=== PATIENT | male | born 1980 | race African-American/Black ===

== ENCOUNTER 2019-10-12 15:43 | Inpatient (IN) | payer OTHER ==
[2019-10-12] VITALS (16 sets, daily range): BP systolic 119–150; BP diastolic 68–91
[~2019-10-12] VITALS: Ht 185.4 cm; Wt 142.0 kg
[2019-10-12 16:17] LABS: ABSOLUTE NEUTROPHILS 7.6 thou/uL (1.4-8.2); BASOPHILS 1.3 % (0.0-2.0); EOSINOPHILS 0.2 % (0.0-3.0); HEMATOCRIT 47.5 % (42.0-52.0); HEMOGLOBIN 15.6 gm/dL (14.0-18.0); LYMPHOCYTES 24.3 % (24.0-44.0); MCH 26.6 pg (26.0-34.0); MCHC 32.8 g/dL (28.0-37.0); MONOCYTES 8.4 % (1.0-8.0); PLATELET COUNT 371 thou/uL (150-400); POLYS 65.8 % (36.0-66.0); RBC 5.86 mil/uL (4.50-6.00); RDW 14.3 % (10.5-14.5); URINE BLOOD 1+ (Negative); URINE CLARITY CLEAR; URINE COLOR YELLOW; URINE GLUCOSE-RANDOM* 3+ (Negative); URINE KETONES 3+ (Negative); URINE LEUKOCYTES-REFLEX NEGATIVE (Negative); URINE NITRITE-REFLEX NEGATIVE (Negative); URINE PROTEIN (DIPSTICK) 1+ (Negative); URINE SPECIFIC GRAVITY >= 1.030 (1.005-1.035); URINE UROBILINOGEN 0.2 E.U./dl (0.2-1.0); WBC 11.6 thou/uL (4.0-11.0)
[2019-10-12 16:21] LABS: BE(vivo) -15.3 mmol/L (-2 to +3); HCO3 10.1 mmol/L (22.0-26.0); PCO2 VENOUS 24.7 mmHg (41.0-51.0); PO2 VENOUS 51.3 mmHg (35.0-45.0)
[2019-10-12 16:21] LABS: ICTOTEST (BILI CONFIRMATORY) Negative (Negative); URINE BILIRUBIN NEGATIVE (Negative)
[2019-10-12 16:50] LABS: CALCIUM 10.2 mg/dL (8.5-10.1); CREATININE 1.6 mg/dL (0.7-1.3); POTASSIUM 5.2 mmol/L (3.5-5.1)
[2019-10-12 16:56] LABS: ALBUMIN 4.8 g/dL (3.4-5.0); TOTAL BILIRUBIN 0.6 mg/dL (<0.1-1.0); TOTAL PROTEIN 8.9 g/dL (6.4-8.2)
[2019-10-12 17:10] LABS: FINE GRANULAR CASTS 4-10 Moderate /LPF (None Seen); HYALINE CASTS 0-3 Few /LPF (None Seen)
[2019-10-12 17:11] LABS: BACTERIA-REFLEX 1-9 Few /HPF (None Seen); CRYSTALS None Seen /LPF (None Seen); SQUAMOUS None Seen /LPF (0-3); URINE RBC 0-2 Rare /HPF (0-2); URINE WBC-REFLEX 0-5 Rare /HPF (0-5)
--- NOTE | 2019-10-12 18:22 | NUR ---
CALLED,INFORMED THERE WERE NO ORDERS FOR THIS PT.--VW
--- NOTE | 2019-10-12 18:30 | NUR ---
PT ADMITTED TO ICU S.P DKA. DR. WORTHY CALLED FOR ORDERS. NEW IV PLACED R FORARM. NS GOING IN WIDE OPEN. FAMILY HERE AND INSTRUCTED ON ICU PROCEDURES. ADMISSION HISTORY AND PHYSICAL DONE.
[2019-10-12 18:59] LABS: MAGNESIUM 1.7 mg/dL (1.8-2.4); PHOSPHORUS 3.4 mg/dL (2.5-4.9)
[2019-10-12 19:42] LABS: ALBUMIN 4.1 g/dL (3.4-5.0); CREATININE 1.4 mg/dL (0.7-1.3); MAGNESIUM 2.4 mg/dL (1.8-2.4); PHOSPHORUS 3.4 mg/dL (2.5-4.9); POTASSIUM 4.9 mmol/L (3.5-5.1); TOTAL BILIRUBIN 0.6 mg/dL (<0.1-1.0); TOTAL PROTEIN 7.8 g/dL (6.4-8.2)
[2019-10-13] VITALS (18 sets, daily range): BP systolic 116–156; BP diastolic 64–101
[2019-10-13 01:29] LABS: CALCIUM 8.3 mg/dL (8.5-10.1); CREATININE 1.3 mg/dL (0.7-1.3); POTASSIUM 4.1 mmol/L (3.5-5.1)
[2019-10-13 01:41] LABS: ALBUMIN 3.8 g/dL (3.4-5.0); PHOSPHORUS 2.2 mg/dL (2.5-4.9)
--- NOTE | 2019-10-13 04:58 | NUR ---
AOX4. DENIES PAIN. VSS. AFEBRILE. DKA PROTOCOL INGOING. INSULING GTT TITRATED PER BS. NO COMPLAINS PRESENTLY. WILL CONTINUE TO MONITOR.
[2019-10-13 04:59] LABS: BASOPHILS 0.8 % (0.0-2.0); EOSINOPHILS 2.3 % (0.0-3.0); HEMATOCRIT 40.7 % (42.0-52.0); MCH 26.3 pg (26.0-34.0); MCV 79.5 fL (80.0-100.0); MONOCYTES 9.9 % (1.0-8.0); PLATELET COUNT 313 thou/uL (150-400); RBC 5.13 mil/uL (4.50-6.00); RDW 14.8 % (10.5-14.5); WBC 7.8 thou/uL (4.0-11.0)
[2019-10-13 05:13] LABS: HEMOGLOBIN 13.5 gm/dL (14.0-18.0)
[2019-10-13 05:27] LABS: ALBUMIN 3.8 g/dL (3.4-5.0); CALCIUM 8.4 mg/dL (8.5-10.1); CREATININE 1.3 mg/dL (0.7-1.3); POTASSIUM 4.4 mmol/L (3.5-5.1); TOTAL BILIRUBIN 0.5 mg/dL (<0.1-1.0); TOTAL PROTEIN 6.8 g/dL (6.4-8.2)
[2019-10-13 05:34] LABS: CHOLESTEROL 227 mg/dL (<200); HDL CHOLESTEROL 31 mg/dL (>40); LDL CHOLESTEROL 163 mg/dL (<100); TC:HDL 7.3 Ratio (Not establshd); TRIGLYCERIDE 165 mg/dL (<150); VLDL 33 mg/dL (<40)
[2019-10-13 05:39] LABS: SERUM ASSESSMENT Clear
[2019-10-13 08:19] LABS: ALBUMIN 3.6 g/dL (3.4-5.0); CALCIUM 8.8 mg/dL (8.5-10.1); CREATININE 1.2 mg/dL (0.7-1.3); PHOSPHORUS 1.9 mg/dL (2.5-4.9); POTASSIUM 3.8 mmol/L (3.5-5.1)
--- NOTE | 2019-10-13 10:01 | EKG ---
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 : 1980 Requested By: Naz Walter Order Number: [id number] MD: Delgado Kearney Measurements Intervals [place] Rate: 103 P: 95 ND: 158 QRS: 35 QRSD: 90 T: -29 QT: 320 QTc: 419 Interpretive Statements Sinus tachycardia Abnormal T, consider ischemia, inferior leads Borderline ST elevation, lateral leads No previous ECG available for comparison Electronically Signed On 10-13-2019 10:01:16 PRINCIPAL NETWORK ARCHITECT by Delgado Kearney [email or web address] <ELECTRONICALLY SIGNED> By: Delgado Kearney MD, [facility] 10/13/19 1001 1609 160 Delgado Kearney MD, FACC /EPI
[2019-10-13 12:30] LABS: CALCIUM 8.7 mg/dL (8.5-10.1); CREATININE 1.3 mg/dL (0.7-1.3); MAGNESIUM 2.2 mg/dL (1.8-2.4); POTASSIUM 4.1 mmol/L (3.5-5.1)
[2019-10-13 17:34] LABS: CALCIUM 9.2 mg/dL (8.5-10.1); CREATININE 1.2 mg/dL (0.7-1.3); MAGNESIUM 2.2 mg/dL (1.8-2.4)
--- NOTE | 2019-10-13 18:21 | NUR ---
PT A/OX4, EDUCATED PT/FAMILY ON DIABETES, PT SEEMS RECEPITIVE TO INFORMATION AND WAS GOOGLING NEW HEALTHY LOW SUGAR OPITIONS. VITAL SIGNS STABLE. ZAYNAB ORDERED PT CC DIET- SPOKE WITH ZAYNAB REGARDING LAB UPDATES AND HE WOULD LIKE PT TO REMAIN ON INSULIN GTT UNTIL 10/14. NO COMPLAINTS OF PAIN.
[2019-10-13 21:48] LABS: CALCIUM 8.7 mg/dL (8.5-10.1); CREATININE 1.2 mg/dL (0.7-1.3); POTASSIUM 3.7 mmol/L (3.5-5.1)
[2019-10-14] VITALS (17 sets, daily range): BP systolic 126–151; BP diastolic 68–88
[2019-10-14 02:06] LABS: CALCIUM 8.3 mg/dL (8.5-10.1); CREATININE 1.1 mg/dL (0.7-1.3); POTASSIUM 3.5 mmol/L (3.5-5.1)
[2019-10-14 05:36] LABS: GLYCOHEMOGLOBIN (HGB A1C) 12.2 % (4.8-5.6)
[2019-10-14 05:54] LABS: ABSOLUTE NEUTROPHILS 2.8 thou/uL (1.4-8.2); BASOPHILS 0.9 % (0.0-2.0); HEMOGLOBIN 12.7 gm/dL (14.0-18.0); LYMPHOCYTES 42.3 % (24.0-44.0); MCH 26.4 pg (26.0-34.0); MCHC 33.5 g/dL (28.0-37.0); MCV 78.9 fL (80.0-100.0); MONOCYTES 8.4 % (1.0-8.0); PLATELET COUNT 276 thou/uL (150-400); POLYS 45.4 % (36.0-66.0); RBC 4.81 mil/uL (4.50-6.00); RDW 14.2 % (10.5-14.5); WBC 6.1 thou/uL (4.0-11.0)
[2019-10-14 06:13] LABS: ALBUMIN 3.2 g/dL (3.4-5.0); CALCIUM 8.6 mg/dL (8.5-10.1); POTASSIUM 3.3 mmol/L (3.5-5.1); TOTAL BILIRUBIN 0.4 mg/dL (<0.1-1.0); TOTAL PROTEIN 6.1 g/dL (6.4-8.2)
--- NOTE | 2019-10-14 06:18 | NUR ---
PT ALERT AND ORIENTED. PT RESTED WELL THROUGHOUT THE NIGHT. PT ANION GAP CLOSED. PT ON 2 UNITS OF CONTINUOUS REGULAR INSULIN.DKA RESOLVED. CHART CHECK. PT PROGRESSING TOWARDS GOALS.
--- NOTE | 2019-10-14 12:44 | NUR ---
INITIAL DIABETIC EDUCATION COMPLETED BY CHARGE NURSE. PATIENT EDUCATED ON HYPOGLYCEMIA AND HYPERGLYCEMIA.
[2019-10-14 13:33] LABS: POTASSIUM 4.2 mmol/L (3.5-5.1)
--- NOTE | 2019-10-14 18:46 | NUR ---
PATIENT ALERT AND ORIENTED X4, NO COMPLAINTS OF PAIN. ON ROOM AIR, UP INDEPENDENTLY IN ROOM, PATIENT STABLE ON FEET. ON INSULIN GTT DURING BEGINNING OF SHIFT, INSULIN DISCONTINUED AT 1420 AND LONG ACTING INSULIN GIVEN. BLOOD SUGAR CLOSELY MONITORED. PATIENT EDUCATED ON INSULIN ADMINISTRATION AND THE IMPORTANCE OF ALTERNATING FINGERS. NO SIGNS OF ACUTE DISTRESS NOTED AT THIS TIME. WILL CONTINUE TO MONITOR.
[2019-10-14 18:55] LABS: CALCIUM 8.7 mg/dL (8.5-10.1); CREATININE 1.1 mg/dL (0.7-1.3); MAGNESIUM 1.7 mg/dL (1.8-2.4); POTASSIUM 4.3 mmol/L (3.5-5.1)
--- NOTE | 2019-10-14 20:00 | NUR ---
ASSUMED CARE OF PT. PT IS A MED SURG OVERFLOW. AWAITING A BED ASSIGNMENT. AWAKE AND ALERT VERY PLEASANT. MAINT IV. REMAINS IN A SINUS TACH BELLAMY 102 AFEBRILE. LUNGS CLEAR. WILL CONT TO MONITOR.
--- NOTE | 2019-10-14 21:00 | NUR ---
BLOOD SUGAR 361. LANTUS AND LISPRO INSULIN GIVEN ORDERED.
--- NOTE | 2019-10-15 01:01 | NUR ---
pt tx via w/c to room 449 with NURSE. AWAKE AND ALERT DENIES CONCERNS
[2019-10-15 01:30] VITALS: BP 148/93
--- NOTE | 2019-10-15 03:36 | NUR ---
progress pt transferred to room 449 from icu report given by Denise CORTEZ from icu. Pt admitted with newly diagnosed diabetes and dka. Diabetic education was initiated in icu and pt has drawn up and injected insulin x2. Pt states he feels really ready to manage his diabetes and plans on educating himself regarding diabetes and self care. Hopes to be discharged home today. continue to monitor.
[2019-10-15 06:24] LABS: CALCIUM 8.7 mg/dL (8.5-10.1); CREATININE 0.8 mg/dL (0.7-1.3); HEMATOCRIT 39.5 % (42.0-52.0); HEMOGLOBIN 13.1 gm/dL (14.0-18.0); MAGNESIUM 1.8 mg/dL (1.8-2.4); MCH 26.5 pg (26.0-34.0); MCHC 33.1 g/dL (28.0-37.0); POTASSIUM 4.1 mmol/L (3.5-5.1); RBC 4.94 mil/uL (4.50-6.00); RDW 14.7 % (10.5-14.5); WBC 4.7 thou/uL (4.0-11.0)
[2019-10-15 07:37] VITALS: BP 144/94
[2019-10-15] MEDS ORDERED: LIPITOR 20 MG T20 M1 PO (09:02)
[2019-10-15] MEDS ORDERED: GLUCOPHAGE XR750 MG PO (09:02)
[2019-10-15] MEDS ORDERED: LANTUS SUBQ (09:03)
[2019-10-15] MEDS ORDERED: TRADJENTA5 MG PO (09:03)
[2019-10-15 10:08] VITALS: BP 144/94
--- NOTE | 2019-10-15 11:29 | NUR ---
pt assessments as documented. seen by Dr. Rawls this am. Changes to medications. Perscriptions written for new oral diabetic meds, as well as lantus and home accucheck machine. pt aware of all new medications and the need for follow up appointment. IV's discontinued. Pt discharged with no further questions.
--- NOTE | 2019-10-15 17:12 | HC ---
[facility] [place] [address] CONSULTATION Name: NALDO CORONA Room #: 449-I [facility] IN M.R.#: [id number] Admission: 10/12/19 Attend Phys: Calvin Reynolds MD Discharge: 10/15/19 Date of : 76 Report #: [id number] THIS REPORT FOR: //name// CC: ERICK physician/PCP Calvin Reynolds DATE OF SERVICE: 10/15/2019 CONSULTING PHYSICIAN: Dr. Reynolds. REASON FOR CONSULTATION: DKA, type 2 diabetes mellitus. HISTORY OF PRESENT ILLNESS: This is a 39-year-old male patient whose medical background is rather unremarkable. The patient presented on 10/12/2019 with progressive generalized weakness, polyuria, polydipsia, weight loss for a few weeks preceding admission. The patient has never been diagnosed with diabetes in the past, but on arrival the patient was found to have DKA. Subsequently, the patient was admitted to the ICU and was managed with IV fluids and intravenous insulin and was stabilized shortly into his hospital stay. Currently, the patient is being managed with subcutaneous insulin therapy. The patient does not have a medical background that is known for hyperlipidemia, hypertension or cardiovascular disease. He notes that his family history is rather remarkable for type 2 diabetes on his mother's side. REVIEW OF SYSTEMS: CONSTITUTIONAL: Fatigue, tiredness, weight loss. No fever. HEENT: No sore throat, ear pain, sinus pain. PULMONARY: No shortness of breath, cough or hemoptysis. CARDIAC: Palpitations, but no syncope, presyncope, chest pain or leg edema. GASTROINTESTINAL: Nausea, vomiting, constipation, all resolved by now. NEUROLOGY: Negative for lightheadedness, loss of consciousness, seizure activity. Occasional peripheral numbness is acknowledged. PSYCHIATRIC: No depression, anxiety, major sleep disturbances or other abnormalities. SKIN: Negative for rash, ulceration, discoloration or other major abnormalities. Otherwise, review of systems noncontributory other than those mentioned in HPI. PAST MEDICAL HISTORY: DKA, type 2 diabetes mellitus as noted in HPI. PAST SURGICAL HISTORY: None. OUTPATIENT MEDICATIONS: None. ALLERGIES: None. [address] [address] CONSULTATION Name: NALDO CORONA Room #: 449-I [facility] IN [facility].#: [id number] Admission: 10/12/19 Attend Phys: Calvin Reynolds MD Discharge: 10/15/19 Date of : 76 Report #: [id number] FAMILY HISTORY: Type 2 diabetes mellitus. SOCIAL HISTORY: He works for the [employer]. He is , has four children. Denies use of tobacco or illicit drugs. PHYSICAL EXAMINATION: GENERAL: Pleasant -Slovenian female patient who is not in apparent pain or distress. VITAL SIGNS: Blood pressure is 144/94 mmHg, heart rate is 78 beats per minute, respiration 18 per minute, temperature 36.5 degrees. CONSTITUTIONAL: The patient appears comfortable, not in apparent distress. HEENT: Anicteric sclerae. Intact extraocular motions. NECK: Supple, without JVD, carotid bruits or lymphadenopathy. I do not appreciate thyromegaly. CHEST: Clear to auscultation with good air entry bilaterally. No wheezes or crackles. HEART: Regular rate and rhythm without murmurs or gallops. ABDOMEN: Soft and lax without tenderness or organomegaly. H has active bowel sounds. EXTREMITIES: Lower extremity exam is noted for trace ankle edema. No skin breaks or ulcerations. Pedal pulses are appreciated. NEUROLOGIC: Awake, alert and oriented to time, place and person. The remainder of his examination is nonfocal. PSYCHIATRIC: Normal mood and affect, interactive, answers my questions appropriately. LABORATORY DATA: Blood glucose on arrival was over 450 and has gradually been controlled, under 200 mg/dL. Over the past 24 hours, the patient's blood glucose values have arisen well above 250 mg/dL. Otherwise, sodium 142, potassium 4.1, chloride 108, CO2 of 23, anion gap on arrival was 27, now it is at 11, BUN 5, creatinine 0.8, was 1.6 on arrival, AST 22, total bilirubin 0.4, calcium 8.7, phosphorus 1.9, magnesium 1.8, alkaline phosphatase 68, ALT 35, total protein 6.1, albumin 3.2. EGFR 129. Lactic acid 1.2. Troponin negative. Total cholesterol 227, triglycerides 165, HDL 31, LDL 163. White blood count 4.7, hemoglobin 13.1, hematocrit 39.5, platelets 273. Hemoglobin A1c 12.2%. ASSESSMENT AND PLAN: 1. Diabetic ketoacidosis. The patient presented in diabetic ketoacidosis as noted above. This has resolved with the instated intravenous fluids, intravenous insulin therapy. 2. Type 2 diabetes mellitus. The patient's outlook is far more suggestive of type 2 diabetes mellitus than it is of type 1 diabetes mellitus. However, due to the occurrence of diabetic ketoacidosis, it would be advisable to definitively rule out type 1 diabetes mellitus via the appropriate serology workup as well as obtaining a C-peptide. These will be sent off prior to the [facility] [address] [place] [address] CONSULTATION Name: NALDO CORONA Room #: 449-I DIS IN [place]#: [id number] Admission: 10/12/19 Attend Phys: Calvin Reynolds MD Discharge: 10/15/19 Date of : 76 Report #: [id number] patient's discharge. The patient and I had a lengthy discussion about the pathogenesis of type 2 diabetes mellitus, its implications, short term and long-term complications. I also counseled the patient about the desired blood glucose goals as well as hemoglobin A1c goals. We discussed the necessary lifestyle measures in detail. Given the patient's above noted course, I would like to place the patient on a regimen of Lantus insulin 28 units daily in addition to metformin 750 mg b.i.d. and Tradjenta 5 mg daily. Moreover, the patient was requested to monitor blood glucose regularly until we have an outpatient followup in the next 10-14 days. I advised the patient that a formal diabetes indication would be prudent and rather helpful in the outpatient setting and he seems agreeable. In the immediate setting and while the patient remains in the hospital, we could maintain support to the Humalog supplemental scale and maintain blood glucose monitoring a.c. and at bedtime. Hyperlipidemia. The new diagnosis of type 2 diabetes mellitus makes the patient a rather high risk for cardiovascular disease in the future. That said, aggressive lipid control is desired. With his LDL lying at 163 mg/dL, it would be prudent to initiate statin therapy. I will do so in the form of atorvastatin 20 mg daily. Outpatient followup will be needed. Thyroid dysfunction. Due to the new diagnosis of type 2 diabetes mellitus, I will screen the patient for thyroid dysfunction given the high risk of this issue in diabetics. Microalbuminuria. Again, given the new diagnosis of type 2 diabetes mellitus, I would like to establish a baseline urine microalbumin secretion for the patient. I have reviewed the patient's clinical care notes, laboratory data throughout his current hospital stay as well as other pertinent clinical information for well over 35 minutes. I certainly appreciate this consultation by Dr. Reynolds. <ELECTRONICALLY SIGNED> By: Shannon Camacho MD 10/15/19 1712 [id number] Shannon Camacho MD /nt
[2019-10-15 22:06] LABS: CREATININE (ALB/CR) 158.1 mg/dL (Not Estab.); MICROALB:CREAT 13.4 (0.0-30.0); MICROALBUMIN-RND URINE 21.2 ug/mL (Not Estab.)
--- NOTE | 2019-10-30 17:51 | NUR ---
received voice message from colten, in loud voice stated " i need that fmla paper completed by tomorrow, call back. i need to pick them up tomorrow"/colten. maura tried number on face sheet no name on message, did not leave message.
--- NOTE | 2019-10-31 10:45 | NUR ---
received another voice message this am from colten stated " need a call back i have paper fmla for my work that i need filled out, call [phone]"/pt. cm called back education that fmla need to be filled out prior to dc, " well i did not have it and i don't have a prim care dr and spoke with the [facility]- endocrinology at [facility] they said to have case management do it. it needs to be faxed today and i need dr bass do it"/pt. education that dr bass is not her in hospital today and will check with j2ee java developer and someone with cm will call colten back.
== END 2019-10-15 11:31 | disposition home or self-care (01) | DRG 637 ==
LOC: ER 15:43 → EROBS 17:13 → ICU 17:13 → 4W 10-15 01:56
PROVIDERS: Hospitalist; Internal Medicine; Nurse Practitioner Family; ADMIT Internal Medicine
DX: E11.10 Type 2 diabetes mellitus with ketoacidosis without coma (principal); N17.0 Acute kidney failure with tubular necrosis; Z68.41 Body mass index [BMI] 40.0-44.9, adult; E87.1 Hypo-osmolality and hyponatremia; K59.00 Constipation, unspecified; E66.9 Obesity, unspecified; E78.5 Hyperlipidemia, unspecified; E07.9 Disorder of thyroid, unspecified; R80.9 Proteinuria, unspecified; R00.0 Tachycardia, unspecified; E87.5 Hyperkalemia; Z79.84 Long term (current) use of oral hypoglycemic drugs; Z79.4 Long term (current) use of insulin; Z83.3 Family history of diabetes mellitus; Z79.899 Other long term (current) drug therapy
CPT/HCPCS: 10078

== ENCOUNTER 2021-06-07 19:51 | Inpatient (IN) | payer OTHER ==
[~2021-06-07] VITALS: Ht 190.5 cm; Wt 144.2 kg
[~2021-06-07 19:51] MED LIST: GLUCOPHAGE XR750 MG PO; LANTUS SUBQ; LIPITOR 20 MG T20 M1 PO; TRADJENTA5 MG PO
[2021-06-07 19:55] VITALS: BP 154/91
[2021-06-07 20:49] LABS: URINE BILIRUBIN NEGATIVE (Negative); URINE BLOOD TRACE (Negative); URINE CLARITY CLEAR; URINE GLUCOSE-RANDOM* 3+ (Negative); URINE KETONES 2+ (Negative); URINE LEUKOCYTES-REFLEX NEGATIVE (Negative); URINE NITRITE-REFLEX NEGATIVE (Negative); URINE PROTEIN (DIPSTICK) NEGATIVE (Negative); URINE UROBILINOGEN 0.2 E.U./dl (0.2-1.0)
[2021-06-07 20:51] LABS: URINE COLOR STRAW
[2021-06-07 20:56] LABS: ABSOLUTE NEUTROPHILS 4.1 thou/uL (1.4-8.2); BASOPHILS 0.9 % (0.0-2.0); EOSINOPHILS 1.1 % (0.0-3.0); HEMATOCRIT 40.9 % (42.0-52.0); HEMOGLOBIN 13.4 gm/dL (14.0-18.0); LYMPHOCYTES 28.2 % (24.0-44.0); MCH 26.9 pg (26.0-34.0); MCHC 32.9 g/dL (28.0-37.0); MCV 81.9 fL (80.0-100.0); MONOCYTES 11.5 % (1.0-8.0); PLATELET COUNT 266 thou/uL (150-400); POLYS 58.3 % (36.0-66.0); RBC 4.99 mil/uL (4.50-6.00); RDW 15.3 % (10.5-14.5)
[2021-06-07 21:02] LABS: BE(vivo) -13.2 mmol/L (-2 to +3); HCO3 11.3 mmol/L (22.0-26.0); PCO2 VENOUS 23.3 mmHg (41.0-51.0); PO2 VENOUS 92.7 mmHg (35.0-45.0)
[2021-06-07 21:12] LABS: ALBUMIN 3.4 g/dL (3.4-5.0); CALCIUM 8.4 mg/dL (8.5-10.1); CREATININE 1.6 mg/dL (0.7-1.3); POTASSIUM 4.6 mmol/L (3.5-5.1); TOTAL BILIRUBIN 0.4 mg/dL (0.2-1.0); TOTAL PROTEIN 6.9 g/dL (6.4-8.2)
[2021-06-07 21:52] LABS: MAGNESIUM 1.8 mg/dL (1.8-2.4); PHOSPHORUS 3.7 mg/dL (2.6-4.7)
[2021-06-07 21:53] LABS: ALBUMIN 3.5 g/dL (3.4-5.0); CALCIUM 8.9 mg/dL (8.5-10.1); CREATININE 1.6 mg/dL (0.7-1.3); PHOSPHORUS 3.8 mg/dL (2.6-4.7); POTASSIUM 4.7 mmol/L (3.5-5.1)
[2021-06-08 05:40] LABS: ALBUMIN 3.4 g/dL (3.4-5.0); CALCIUM 8.8 mg/dL (8.5-10.1); CREATININE 1.1 mg/dL (0.7-1.3); MAGNESIUM 2.1 mg/dL (1.8-2.4); PHOSPHORUS 2.9 mg/dL (2.5-4.9)
[2021-06-08 05:41] LABS: POTASSIUM 3.5 mmol/L (3.5-5.1)
[2021-06-08 07:06] VITALS: BP 146/84
[2021-06-08 20:35] VITALS: BP 151/81
[2021-06-08 21:10] VITALS: BP 130/85
--- NOTE | 2021-06-08 23:27 | NUR ---
ADMIT- PT IS A 40 YEAR-OLD MALE,ADMITTED TO 215 WITH DKA.PT IS A/OX4.VSS.OFF INSULIN DRIP,BLOOD GLUCOSE MANAGED WITH LANTUS AND LISPRO PER SS.ORIENTED TO RM. REVIEWED POC AND IN AGREEMENT.SR ON MONITOR.RA W/O RESP DISTRESS.VOIDS VIA URINE.UP TO BR INDEPENDTLY,STEADY GAIT.IVF.ADMISSION ASSESSMENT COMPLETED DOCUMENTED.PT DENIES ANY CONCERNS AT THIS TIME.WILL CONT TO MONITOR PER POC.
[2021-06-09 04:00] VITALS: BP 126/81
[2021-06-09 04:03] LABS: ABSOLUTE NEUTROPHILS 2.7 thou/uL (1.4-8.2); BASOPHILS 0.5 % (0.0-2.0); EOSINOPHILS 2.7 % (0.0-3.0); HEMATOCRIT 37.5 % (42.0-52.0); HEMOGLOBIN 12.7 gm/dL (14.0-18.0); LYMPHOCYTES 36.6 % (24.0-44.0); MCH 26.9 pg (26.0-34.0); MCV 79.1 fL (80.0-100.0); MONOCYTES 11.4 % (1.0-8.0); PLATELET COUNT 234 thou/uL (150-400); POLYS 48.8 % (36.0-66.0); RBC 4.74 mil/uL (4.50-6.00); RDW 15.4 % (10.5-14.5); WBC 5.6 thou/uL (4.0-11.0)
[2021-06-09 04:25] LABS: CALCIUM 8.2 mg/dL (8.5-10.1); CREATININE 0.7 mg/dL (0.7-1.3); POTASSIUM 3.5 mmol/L (3.5-5.1)
[2021-06-09 04:31] LABS: ALBUMIN 2.9 g/dL (3.4-5.0); MAGNESIUM 1.8 mg/dL (1.8-2.4); TOTAL BILIRUBIN 0.3 mg/dL (0.2-1.0); TOTAL PROTEIN 5.5 g/dL (6.4-8.2)
[2021-06-09 04:43] LABS: CHOLESTEROL 236 mg/dL (<200); HDL CHOLESTEROL 31 mg/dL (>40); LDL CHOLESTEROL 164 mg/dL (<100); SERUM ASSESSMENT Clear; TC:HDL 7.6 Ratio (Not establshd); TRIGLYCERIDE 209 mg/dL (<150); VLDL 42 mg/dL (<40)
--- NOTE | 2021-06-09 06:26 | NUR ---
PT RESTED WELL THROUGHOUT THE NOC.NO CONCERNS VOICED.
[2021-06-09 08:00] VITALS: BP 127/82
--- NOTE | 2021-06-09 11:03 | NUR ---
ORDERS RECEIVED FOR PT EVAL AND TREAT. Pt SITTING AT EOB IN ROOM. Pt ADMITTED FOR DKA. Pt DECLINED PT NEEDS, HAS BEEN UP AD JANELLE. ASKING IF HIS IV COULD BE DISCONNECTED SO HE COULD WASH UP; RN NOTIFIED. ACUTE PT TO SIGN OFF.
[2021-06-09 12:00] VITALS: BP 126/74
[2021-06-09 15:45] VITALS: BP 113/57
[2021-06-09 21:14] VITALS: BP 125/71
[2021-06-10 04:06] LABS: GLYCOHEMOGLOBIN (HGB A1C) 14.4 % (4.8-5.6)
[2021-06-10 04:17] VITALS: BP 123/77
[2021-06-10 07:50] VITALS: BP 127/80
[2021-06-10 09:10] VITALS: BP 127/80
[2021-06-10 12:00] VITALS: BP 126/82
[2021-06-10] MEDS ORDERED: METFORMIN HCL500 MG PO (13:02)
[2021-06-10] MEDS ORDERED: ACETAMINOPHEN325 M1 PO (13:02)
--- NOTE | 2021-06-10 14:10 | NUR ---
Met with patient who admits with DKA. Patient has prev admission with same diagnosis. Patient does not have PCP. He is agreeable to PCP on campus of [facility]. Arranged apt with Dr Schwartz Jun 22 at 2:15. Updated patient info of apt in dc. No further needs
[2021-06-10 14:47] VITALS: BP 127/80
--- NOTE | 2021-06-10 15:41 | NUR ---
RECEIVED THE PATIENT CONSCIOUS AND ORIENTED.ON ROOM AIR BREATHING SPONTANEOSULY.NOT IN PAIN OR DISTRESS.STENCIL SPRAYER SPOKE WITH THE PATIENT TO DISCUSS ABOUT DISCHARGE NEEDS.DISCHARGE PACKET GIVEN AND EVERYTHING WAS EXPLAINED TO THE PATIENT.[facility]
--- NOTE | 2021-06-11 09:05 | NUR ---
PATIENT CALLED THE UNIT SAYING HE DIDNT RECIEVE ANY PRESCRIPTIONS FOR ATORVASTIN, TRADJENTA OR LANTUS THAT HE WAS DISCHARGED ON. LOOKED AT DISCHARGE PAPERWORK AND THIS IS MEDICATIONS THAT HE WAS SENT HOME TO TAKE, SPOKE WITH DR. ZAMORA PERSONALLY AND HE REMEMBERED THE PATIENT AND THOUGHT HE HAD THESE MEDICATIONS AT HOME. DR. ZAMORA OKAY WITH THIS NURSE CALLING IN THOSE 3 SCRIPTS ORDERED FOR 1 MONTH SUPPLY. MEDICATIONS CALLED INTO [facility], PATIENT CALLED AND INFORMED SCRIPTS WERE SENT.
== END 2021-06-10 15:15 | disposition home or self-care (01) | DRG 637 ==
LOC: ER 19:51 → EROBS 21:29 → ER 21:29 → EROBS 21:30 → 2N 06-08 15:13
PROVIDERS: Internal Medicine; Nurse Practitioner Family; Physician Assistant; ADMIT Internal Medicine; ATTEND Internal Medicine
DX: E11.10 Type 2 diabetes mellitus with ketoacidosis without coma (principal); N17.0 Acute kidney failure with tubular necrosis; E86.0 Dehydration; E66.01 Morbid (severe) obesity due to excess calories; E78.5 Hyperlipidemia, unspecified; Z79.899 Other long term (current) drug therapy; Z79.4 Long term (current) use of insulin; Z91.14 Patient's other noncompliance with medication regimen; Z68.39 Body mass index [BMI] 39.0-39.9, adult
CPT/HCPCS: 10081

== ENCOUNTER 2021-06-28 12:25 | Emergency (ER) | payer OTHER ==
[~2021-06-28] VITALS: Ht 190.5 cm; Wt 145.2 kg
[~2021-06-28 12:25] MED LIST changes: +ACETAMINOPHEN325 M1 PO; +METFORMIN HCL500 MG PO
== END 2021-06-28 13:34 | disposition home or self-care (01) ==
LOC: ER 12:25
DX: S81.012A Laceration without foreign body, left knee, initial encounter (principal); E11.9 Type 2 diabetes mellitus without complications; Z79.891 Long term (current) use of opiate analgesic; Z79.4 Long term (current) use of insulin; Z79.899 Other long term (current) drug therapy; W22.8XXA Striking against or struck by other objects, initial encounter; Y93.89 Activity, other specified; Y92.89 Other specified places as the place of occurrence of the external cause; Y99.8 Other external cause status